=== PATIENT | female | born 1990 | race Caucasian/White ===

== ENCOUNTER → 2023-04-11 07:49 | Outpatient (REF) | payer BC, SELFPAY ==
[2023-04-13 10:56] LABS: AFP Multiple of Median (MoM) 0.79; Dating LMP CONF by US; Family Neural Tube Defect Hx No; Insulin Req Maternal Diabetes No; Maternal Age at Delivery 34.2 yr; Maternal Race Nonblack; Maternal Screen Interpretation Screen Neg; Maternal Weight 143.0 lbs.; Number of Fetuses Singleton; Patient's AFP Concentration 31 ng/mL; Smoking No
== END ==
LOC: SDSPAT 07:49
PROVIDERS: ATTENDING PHYSICIAN Obstetrics & Gynecology; FAMILY PHYSICIAN Family Medicine
DX: Z34.90 Encounter for supervision of normal pregnancy, unspecified, unspecified trimester (principal)
CPT/HCPCS: 82105

== ENCOUNTER → 2023-05-14 15:00 | Outpatient (REF) | payer BC, SELFPAY | LOC: WDC 15:00 | PROVIDERS: ATTENDING PHYSICIAN Obstetrics & Gynecology; FAMILY PHYSICIAN Family Medicine | DX: R92.8 Other abnormal and inconclusive findings on diagnostic imaging of breast (principal) | CPT/HCPCS: 76642 ==

== ENCOUNTER → 2023-06-08 06:49 | Outpatient (REF) | payer BC, SELFPAY ==
[2023-06-08 09:15] LABS: % Basophils 0.6 % (0-2); % Eosinophils 0.6 % (0-6); % Immature Granulocytes 0.5 % (0-0.5); % Lymphocytes 15.5 % (20.5-51.1); % Monocytes 5.2 % (1.7-9.3); % Neutrophils 77.6 % (42.2-75.2); Absolute Basophils 0.1 10^3/uL (0-0.2); Absolute Eosinophils 0.1 10^3/uL (0-0.7); Absolute Lymphocytes 1.3 10^3/uL (1.2-3.4); Absolute Monocytes 0.4 10^3/uL (0.1-0.6); Absolute Neutrophils 6.4 10^3/uL (1.4-6.5); Hematocrit 35.3 % (37.0-47.0); Hemoglobin 11.8 g/dL (12.0-16.0); Mean Corp Hgb Conc. 33.4 g/dL (33.0-37.0); Mean Corpuscular Hgb 30.3 pg (27.0-31.0); Mean Corpuscular Volume 90.5 fL (81.0-99.0); Mean Platelet Volume 9.7 fL (7.4-10.4); Nucleated Red Blood Cells % 0 %; Platelet Count 295 10^3/uL (130-400); Red Cell Dist. Width 13.2 % (11.5-14.5); White Blood Cell Count 8.3 10^3/uL (4.8-10.8)
[2023-06-08 09:57] LABS: 1 Hour after 50gm 180 mg/dl
[2023-06-12 15:00] LABS: Syphilis/T. pallidum Ab Reflex Negative (Negative)
== END ==
LOC: SDSPAT 06:49
PROVIDERS: ATTENDING PHYSICIAN Obstetrics & Gynecology; PRIMARYCARE PHYSICIAN Family Medicine
DX: Z34.93 Encounter for supervision of normal pregnancy, unspecified, third trimester (principal)
CPT/HCPCS: 36415; 82950; 85025; 86780

== ENCOUNTER → 2023-06-25 07:18 | Outpatient (REF) | payer BC, SELFPAY ==
[2023-06-25 08:13] LABS: Glucose for Tolerance Test 84 mg/dl
[2023-06-25 10:26] LABS: Glucose for Tolerance Test 179 mg/dl
[2023-06-25 11:15] LABS: Glucose for Tolerance Test 153 mg/dl
[2023-06-25 11:52] LABS: Glucose for Tolerance Test 117 mg/dl
== END ==
LOC: SDSPAT 07:18
PROVIDERS: ATTENDING PHYSICIAN Obstetrics & Gynecology; FAMILY PHYSICIAN Family Medicine
DX: Z34.90 Encounter for supervision of normal pregnancy, unspecified, unspecified trimester (principal)
CPT/HCPCS: 36415; 82951

== ENCOUNTER → 2023-08-29 14:34 | Outpatient (REF) | payer BC, SELFPAY | LOC: CPAP 14:34 | PROVIDERS: ATTENDING PHYSICIAN Obstetrics & Gynecology | DX: Z34.90 Encounter for supervision of normal pregnancy, unspecified, unspecified trimester (principal) | CPT/HCPCS: 87070 ==

== ENCOUNTER 2023-09-14 06:05 | Inpatient (IN) | payer BC, SELFPAY ==
[2023-09-14 06:10] VITALS: BMI 28.0
[2023-09-14 06:20] VITALS: BP 107/71
[2023-09-14 06:56] LABS: Hematocrit 29.6 % (37.0-47.0); Hemoglobin 10.1 g/dL (12.0-16.0); Mean Corp Hgb Conc. 34.1 g/dL (33.0-37.0); Mean Corpuscular Hgb 29.1 pg (27.0-31.0); Mean Corpuscular Volume 85.3 fL (81.0-99.0); Mean Platelet Volume 11.3 fL (7.4-10.4); Platelet Count 202 10^3/uL (130-400); Red Blood Cell Count 3.47 10^6/uL (4.20-5.40); Red Cell Dist. Width 13.3 % (11.5-14.5)
[2023-09-14] MEDS: ANCEF 10 IV (09:02)
[2023-09-14] MEDS: LR 1000 IV (09:02)
[2023-09-14] MEDS: BICITRA 30 ML PO (09:02)
[2023-09-14] MEDS: TYLENOL 1000 MG PO (09:02)
[2023-09-14] MEDS: TORADOL 15 MG IV ×2 (17:14→23:03)
[2023-09-15] MEDS: TORADOL 15 MG IV ×2 (04:55→11:16)
[2023-09-15 05:08] LABS: Hematocrit 27.9 % (37.0-47.0); Hemoglobin 9.6 g/dL (12.0-16.0); Mean Corp Hgb Conc. 34.4 g/dL (33.0-37.0); Mean Corpuscular Hgb 29.4 pg (27.0-31.0); Mean Corpuscular Volume 85.6 fL (81.0-99.0); Mean Platelet Volume 11.6 fL (7.4-10.4); Platelet Count 176 10^3/uL (130-400); Red Blood Cell Count 3.26 10^6/uL (4.20-5.40); Red Cell Dist. Width 13.1 % (11.5-14.5); White Blood Cell Count 15.2 10^3/uL (4.8-10.8)
[2023-09-15] MEDS: FEOSOL 325 MG PO (09:32)
[2023-09-15] MEDS: PRENATAL PLUS 1 TABLET PO (09:32)
--- NOTE | 2023-09-15 12:46 | W.PN.ANS.POP ---
Anesthesia Post Operative
- Anesthesia Post Op Note
Vital Signs Stable-See Nursing Note: Yes
Airway Patent: Yes
Adequate Pain Control: Yes
Change in Mental Status: No
Current Postoperative Nausea & Vomiting: No
Anesthesia Complications: No
General Anesthetic Recall: No
Unplanned Admission: No
Post Op Hydration Adequate: Yes
[2023-09-15] MEDS: PEPCID 20 MG PO (14:22)
[2023-09-15] MEDS: TYLENOL 650 MG PO ×2 (17:03→22:59)
[2023-09-15] MEDS: MOTRIN 600 MG PO ×2 (17:04→22:59)
[2023-09-16] MEDS: PEPCID 20 MG PO (08:36)
[2023-09-16] MEDS: PRENATAL PLUS 1 TABLET PO (08:36)
[2023-09-16] MEDS: FEOSOL 325 MG PO (08:36)
[2023-09-16] MEDS: TYLENOL 650 MG PO ×3 (08:49→22:50)
[2023-09-16] MEDS: MOTRIN 600 MG PO ×3 (08:49→22:50)
[2023-09-16] MEDS: SENOKOT-S 1 TABLET PO (08:49)
[2023-09-17] MEDS: MOTRIN 600 MG PO (07:45)
[2023-09-17] MEDS: TYLENOL 650 MG PO (07:45)
[2023-09-17] MEDS: FEOSOL 325 MG PO (07:46)
[2023-09-17] MEDS: PRENATAL PLUS 1 TABLET PO (07:46)
[2023-09-17] MEDS: PEPCID 20 MG PO (07:46)
--- NOTE | 2023-09-17 15:00 | W.DS.TRANS ---
DC Summary - [employer]
-
Discharge Instructions:
Discharge Diagnosis/Procedures section
Instructions:
Stand-Alone Forms: LDRP Delivery
Changes to Home Medications: No
Discharge Medications:
DC Medications w/original date entered in [facility]
famotidine 20 mg tablet (Pepcid AC) 20 mg PO BID Gastrointestinal issue 08/15/21
vit no.95-ferrous fumarate 28 mg-folic acid 800 mcg tablet () 1 ea PO DAILY Supplement 08/15/21
acetaminophen 325 mg tablet 650 mg (2 x 325 mg) PO Q4HPRN PRN mild pain #0 tabs 09/17/23
ferrous sulfate 325 mg (65 mg iron) tablet (FeroSul) 325 mg PO DAILY #0 tabs 09/17/23
ibuprofen 600 mg tablet 600 mg PO Q6HPRN PRN cramps #45 tabs 09/17/23
sennosides 8.6 mg-docusate sodium 50 mg tablet (Stool Softener-Laxative) 1 tab PO DAILYPRN PRN constipation #0 tabs 09/17/23
Home Medication Changes
Pending Results: No
[2023-09-18 09:57] LABS: Syphilis/T. pallidum Ab Reflex Negative (Negative)
== END 2023-09-17 13:08 | disposition home or self-care (01) | DRG 788 ==
LOC: LDRP 06:05
PROVIDERS: ADMITTING PHYSICIAN Obstetrics & Gynecology
PROC: 10D00Z1 Extraction of Products of Conception, Low, Open Approach (ICD-10-PCS; 2023-09-14)
DX: O34.211 Maternal care for low transverse scar from previous cesarean delivery (principal); Z3A.39 39 weeks gestation of pregnancy; Z37.0 Single live birth; K21.9 Gastro-esophageal reflux disease without esophagitis; M41.9 Scoliosis, unspecified; G43.909 Migraine, unspecified, not intractable, without status migrainosus; O99.02 Anemia complicating childbirth; D64.9 Anemia, unspecified; Z80.3 Family history of malignant neoplasm of breast
CPT/HCPCS: 85027; 86780; 86850; 86900; 86901

== ENCOUNTER → 2024-07-10 14:51 | Outpatient (REF) | payer BC, SELFPAY | LOC: WDC 14:51 | PROVIDERS: ATTENDING PHYSICIAN Obstetrics & Gynecology | DX: R92.8 Other abnormal and inconclusive findings on diagnostic imaging of breast (principal) | CPT/HCPCS: 76641 ==